=== PATIENT | male | born 1945 | race Caucasian/White ===

== ENCOUNTER 2016-08-28 | Outpatient (CLI) | END 2016-08-28 03:29 | disposition critical access hospital (66) | CPT/HCPCS: A0425; A0429 ==

== ENCOUNTER 2016-08-28 03:36 | Emergency (ER) | END 2016-08-28 07:21 | disposition home or self-care (01) ==

== ENCOUNTER 2016-10-02 09:37 | Outpatient (CLI) | payer MEDICARE, OTHER | END 2016-10-02 09:38 | disposition home or self-care (01) | DX: I10 Essential (primary) hypertension (principal) ==

== ENCOUNTER 2016-12-07 08:47 | Emergency (ER) | payer MEDICARE, OTHER ==
[2016-12-07] MEDS ORDERED: BENZONATATE 100 MG CAPSULE PO STA (08:54)
[2016-12-07] MEDS ORDERED: guaiFENesin/DEXTROMETHORPHAN 10 ML UDC PO PRN (08:54)
[2016-12-07] MEDS ORDERED: BENZONATATE 100 MG CAPSULE PO ONE (09:08)
[2016-12-07] MEDS ORDERED: guaiFENesin/DEXTROMETHORPHAN 10 ML UDC ONE (09:09)
== END 2016-12-07 09:50 | disposition home or self-care (01) ==
DX: J18.9 Pneumonia, unspecified organism (principal); I10 Essential (primary) hypertension; N40.0 Benign prostatic hyperplasia without lower urinary tract symptoms; M19.90 Unspecified osteoarthritis, unspecified site
CPT/HCPCS: 71020; 99282; 99283; A9270

== ENCOUNTER 2017-10-15 07:54 | Outpatient (CLI) | payer MEDICARE, OTHER ==
[2017-10-15 12:58] LABS: BASOPHILS % (AUTO) 0.3 %; EOSINOPHILS # (AUTO) 0.3 10^3/uL (0.0-0.7); EOSINOPHILS % (AUTO) 4.7 %; LYMPHOCYTES # (AUTO) 1.4 10^3/uL (1.5-3.5); LYMPHOCYTES % (AUTO) 19.2 %; MEAN CORPUSCULAR HEMOGLOBIN 32.6 pg (27.0-31.0); MEAN CORPUSCULAR HGB CONC 34.3 g/dL (32.0-36.0); MEAN PLATELET VOLUME 10.3 fL (7.4-11.4); MONOCYTES # (AUTO) 0.7 10^3/uL (0.0-1.0); MONOCYTES % (AUTO) 10.2 %; NEUTROPHILS # (AUTO) 4.8 10^3/uL (1.5-6.6); NEUTROPHILS % (AUTO) 65.6 %; PLT - PLATELET COUNT 152 10^3/uL (130-450); RED BLOOD COUNT 4.61 10^6/uL (4.70-6.10); WHITE BLOOD COUNT 7.3 x10^3/uL (4.8-10.8)
[2017-10-15 13:14] LABS: PSA FREE 0.58 ng/mL (0.16-2.81)
[2017-10-15 13:15] LABS: PSA TOTAL 2.91 ng/mL (0.000-2.000)
[2017-10-15 13:16] LABS: HB2 TOTAL 16.4 g/dL; HEMOGLOBIN A1C 0.69 g/dL
[2017-10-15 13:26] LABS: ALBUMIN 4.3 g/dL (3.2-5.5); ALBUMIN/GLOBULIN RATIO 1.6 (1.0-2.2); ALKALINE PHOSPHATASE 42 IU/L (42-121); ALT ALANINE AMINOTRANSFERASE 39 IU/L (10-60); AST ASPARTATE AMINOTRANSFERASE 33 IU/L (10-42); BILIRUBIN,TOTAL 1.1 mg/dL (0.2-1.0); BUN - BLOOD UREA NITROGEN 19 mg/dL (6-20); CALCIUM 9.3 mg/dL (8.5-10.3); CARBON DIOXIDE - CO2 23 mmol/L (21-32); CHLORIDE 105 mmol/L (101-111); CHOL/HDL RATIO 3.9 (<5.0); CHOLESTEROL 201 mg/dL; CREATININE 1.2 mg/dL (0.6-1.2); GFR - MDRD 60 (>89); GLUCOSE 147 mg/dL (70-100); HDL CHOLESTEROL 51 mg/dL; LDL CHOLESTEROL,CALCULATED 109 mg/dL; LDL/HDL RATIO 2.1 (<3.6); SODIUM 137 mmol/L (135-145); VLDL CHOLESTEROL 41 mg/dL
== END 2017-10-15 07:55 | disposition home or self-care (01) ==
LOC: LAB.WCP 07:54
PROVIDERS: ATTEND Family Medicine
DX: E66.9 Obesity, unspecified (principal); R73.9 Hyperglycemia, unspecified; E78.5 Hyperlipidemia, unspecified; I10 Essential (primary) hypertension; R97.20 Elevated prostate specific antigen [PSA]
CPT/HCPCS: 36415; 80053; 80061; 83036; 83721; 84154; 84443; 85025

== ENCOUNTER 2021-07-05 12:52 | Outpatient (CLI) | payer MEDICARE | END 2021-07-05 12:53 | disposition home or self-care (01) | LOC: COV 12:52 | PROVIDERS: ATTEND Family Medicine | DX: Z20.822 Contact with and (suspected) exposure to COVID-19 (principal) ==

== ENCOUNTER 2021-08-14 13:01 | Outpatient (CLI) | payer MEDICARE ==
--- NOTE | 2021-08-14 15:57 | Ultrasound Report ---
PROCEDURE: Pelvic Limited or F/U INDICATIONS: BULGE IN RIGHT LOWER QUADRANT TECHNIQUE: Real-time transabdominal scanning was performed of the pelvic organs, with image documentation. COMPARISON: None. FINDINGS: Limited ultrasound of the right groin in the area of pain was performed. Normal tissue is identified with no hernia identified. IMPRESSION: No hernia identified by ultrasound. Reviewed by: Bakari David on 08/14/2021 2:56 PM [facility] Approved by: Bakari David on 08/14/2021 2:56 PM [facility] Station ID: [id number]
== END 2021-08-14 13:02 | disposition home or self-care (01) ==
LOC: DI 13:01
PROVIDERS: ATTEND Family Medicine
DX: R19.03 Right lower quadrant abdominal swelling, mass and lump (principal); Z87.19 Personal history of other diseases of the digestive system

== ENCOUNTER 2021-08-31 12:50 | Outpatient (CLI) | payer MEDICARE ==
--- NOTE | 2021-08-31 16:07 | MRI Report ---
PROCEDURE: Lumbar Spine W/O INDICATIONS: LEFT LUMBAR RADICULOPATHY TECHNIQUE: Noncontrast sagittal T1 spin echo and T2 fast echo, sagittal STIR, axial T1 and T2 fast spin echo thr ough the lumbar spine. In cases with scoliosis, additional coronal T2 fast spin echo may be performe d. COMPARISON: None. FINDINGS: Image quality: Excellent. Alignment and Curvature: No plain films are available for comparison. Thus, for numbering purposes, 5 lumbar type vertebral bodies will be presumed for the current report. This should be confirmed with plain film correlation prior to any lumbar spinal intervention. There is normal bony alignment. Bone Marrow: Marrow is of normal overall signal. No acute vertebral body compression fractures. Mi ld reactive signal throughout the endplates of the lumbar and lower thoracic spine. Spinal Cord: Conus medullaris terminates at the lower L1 level. Visualized cord demonstrates normal signal and size. Paraspinous Soft Tissues: No paravertebral masses. Parapelvic renal cysts are present. T12-L1: Normal in appearance. L1-L2: Mild disc height loss and desiccation. Mild facet and ligament flavum hypertrophy. Mild can al stenosis. Mild bilateral foraminal stenosis. L2-L3: Mild disc desiccation. Mild facet and ligament flavum hypertrophy. Mild canal stenosis. Mil d bilateral foraminal stenosis. L3-L4: Mild disc desiccation and diffuse disc bulge. Mild facet and ligament flavum hypertrophy. Mi ld canal stenosis. Mild bilateral foraminal stenosis. L4-L5: Moderate disc desiccation. Moderate facet and ligament flavum hypertrophy. Mild epidural lip omatosis. Mild canal stenosis. Moderate bilateral foraminal stenosis. L5-S1: Mild disc height loss and desiccation. Mild bilateral facet hypertrophy. Mild canal stenosis . Mild right and moderate left foraminal stenosis. IMPRESSION: 1. Multilevel degenerative disc and facet disease, in addition to epidural lipomatosis and ligamentum flavum hypertrophy. 2. Mild multilevel canal stenoses. . Multilevel foraminal stenoses, worst at L4-L5 and L5-S1, where there are moderate foraminal stenose s. Reviewed by: Domo Ramirez MD on 08/31/2021 4:06 PM PST Approved by: Domo Ramirez MD on 08/31/2021 4:06 PM PST Station ID: [id number]
== END 2021-08-31 12:51 | disposition home or self-care (01) ==
LOC: DI 12:50
PROVIDERS: ATTEND Family Medicine
DX: E88.2 Lipomatosis, not elsewhere classified (principal); M47.26 Other spondylosis with radiculopathy, lumbar region; M47.27 Other spondylosis with radiculopathy, lumbosacral region; M51.16 Intervertebral disc disorders with radiculopathy, lumbar region; M48.061 Spinal stenosis, lumbar region without neurogenic claudication; M51.37 Other intervertebral disc degeneration, lumbosacral region; M48.07 Spinal stenosis, lumbosacral region

== ENCOUNTER 2022-01-24 12:47 | Outpatient (CLI) | payer MEDICARE ==
--- NOTE | 2022-01-24 16:00 | CT Report ---
PROCEDURE: CT brain without contrast INDICATIONS: WEAKNESS OF BOTH LEGS, LOSS OF SENSATION IN HANDS TECHNIQUE: Noncontrast 4.5 mm thick angled axial sections acquired from the foramen magnum to the vertex. For r adiation dose reduction, the following was used: automated exposure control, adjustment of mA and/or kV according to patient size. COMPARISON: None. FINDINGS: Image quality: Excellent. CSF spaces: Basal cisterns are patent. No extra-axial fluid collections. Ventricles are normal in size and shape. Brain: No midline shift. No intracranial masses or hemorrhage. Shafer-white matter interface is norm al. Moderate atrophy and multifocal white matter chronic ischemic change noted. Atherosclerotic vasc ular calcification noted in the cavernous segments of both internal carotid arteries as well as the i ntradural vertebral arteries. Skull and face: Calvarium and visualized facial bones are intact, without suspicious lesions. Bilat eral intraocular lens replacements noted. Sinuses: Visualized sinuses and mastoids are clear. Mild ethmoid and bilateral maxillary sinus muco antoinette thickening IMPRESSION: 1. Atrophy and chronic ischemic change without acute hemorrhage or mass effect 2. Mild maxillary and ethmoid mucosal sinus disease Reviewed by: Maximus Buckner MD on 01/24/2022 2:58 PM [facility] Approved by: Maximus Buckner MD on 01/24/2022 2:58 PM [facility] Station ID: [id number]
== END 2022-01-24 12:48 | disposition home or self-care (01) ==
LOC: DI 12:47
PROVIDERS: ATTEND Family Medicine
DX: G31.9 Degenerative disease of nervous system, unspecified (principal); I67.82 Cerebral ischemia; J32.0 Chronic maxillary sinusitis; J32.2 Chronic ethmoidal sinusitis

== ENCOUNTER 2023-02-20 09:33 | Emergency (ER) | payer MEDICARE ==
[2023-02-20 11:14] LABS: BILIRUBIN,URINE NEGATIVE (NEGATIVE); GLUCOSE, URINE (UA) NEGATIVE (NEGATIVE); KETONES,URINE (UA) 15 mg/dL (NEGATIVE); LEUKOCYTE ESTERASE, URINE NEGATIVE (NEGATIVE); NITRITE,URINE NEGATIVE (NEGATIVE); OCCULT BLOOD,URINE NEGATIVE (NEGATIVE); PH,URINE 5.5 PH (5.0-7.5); PROTEIN,URINE NEGATIVE (NEGATIVE); UROBILINOGEN,URINE 0.2 (NORMAL) E.U./dL (NORMAL)
[2023-02-20 11:20] LABS: CLARITY,URINE CLEAR (CLEAR)
[2023-02-20] MEDS ORDERED: SODIUM CHLORIDE 0.9% 1,000 ML IV STA (11:32)
--- NOTE | 2023-02-20 11:33 | ED Physician Documentation ---
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 He has had back pain preceding the placement of the shunt and this has not been fully addressed. His back pain became significantly worse about 1 month ago when he sat in the dentist chair. Since that time he has been uncomfortable having a hard time getting out of bed secondary to pain in his back. He denies radiation into his back he does have some radiation around to his front sometimes and a sharp stabbing pain that is present when he is laying flat. Review of Systems Constitutional: denies: Fever Eyes: denies: Decreased vision Ears: denies: Ear pain Nose: denies: Congestion Throat: denies: Sore throat Cardiac: denies: Chest pain / pressure, Palpitations Respiratory: denies: Dyspnea, Cough GI: denies: Abdominal Pain, Nausea, Vomiting, Constipation, Diarrhea : denies: Dysuria, Frequency Musculoskeletal: reports: Back pain. denies: Neck pain, Extremity pain Neurologic: reports: Headache (similar to always since the procedure.). denies: Generalized weakness, Focal weakness, Numbness PD PAST MEDICAL HISTORY - Past Medical History Cardiovascular: Hypertension Respiratory: None Endocrine/Autoimmune: None GI: None : Benign prostate hypertrophy HEENT: None Musculoskeletal: Osteoarthritis Derm: None - Past Surgical History Past Surgical History: Yes General: Other HEENT: Tonsil/Adenoidectomy - Present Medications Home Medications: Ambulatory Orders Medication Instructions Recorded Confirmed guaiFENesin/DEXTROMETHORPHAN 10 ml PO Q6H PRN #120 ml 12/07/16 10/27/22 [Robitussin Dm] Albuterol Sulf [Ventolin Hfa 1 - 2 puffs INH Q4HR PRN #1 each 10/27/22 Inhaler] Benzonatate [Tessalon] 200 mg PO TID PRN #20 cap 10/27/22 Gabapentin [Neurontin] 1 cap PO TID 10/27/22 10/27/22 Hydroxychloroquine [Plaquenil] 200 mg PO DAILY 10/27/22 10/27/22 Tamsulosin [Flomax] 1 cap PO DAILY 10/27/22 10/27/22 Meloxicam [Mobic] 7.5 mg PO BID PRN #20 tablet 02/20/23 - Allergies Allergies/Adverse Reactions: Allergies Allergy/AdvReac Type Severity Reaction Status Date / Time morphine AdvReac Intermediate Nausea Verified 02/20/23 09:41 hydrocodone bitartrate * AdvReac Mild Nausea Verified 02/20/23 09:41 [From Vicodin] oxycodone HCl * AdvReac Mild Nausea Verified 02/20/23 09:41 [From Percocet] tramadol HCl * [From Ultram] AdvReac Mild Nausea Verified 02/20/23 09:41 - Social History Does the pt smoke?: No Smoking Status: Never smoker Does the pt drink ETOH?: Yes Does the pt have substance abuse?: No - Immunizations Immunizations are current?: Yes - POLST Patient has POLST: No PD ED PE NORMAL - Vitals Vital signs reviewed: Yes (hypertensive with wide pulse pressure. ) - General General: Alert and oriented X 3, No acute distress, Well developed/nourished - HEENT HEENT: Atraumatic, PERRL, EOMI - Neck Neck: Supple, no meningeal sign, No bony TTP - Cardiac Cardiac: RRR, No murmur - Respiratory Respiratory: No respiratory distress, Clear bilaterally - Back Back: No CVA TTP, No spinal TTP, Other (mild paralumbar pain to palpation on the right lower. ) - Derm Derm: Normal color, Warm and dry, No rash - Extremities Extremities: No deformity, No edema - Neuro Neuro: Alert and oriented X 3, sweatband drummer 2-12 intact, No motor deficit, No sensory deficit, Normal speech Eye Opening: Spontaneous Motor: Obeys Commands Verbal: Oriented GCS Score: 15 - Psych Psych: Normal mood, Normal affect Results - Vitals Vitals: Vital Signs - 24 hr 02/20/23 02/20/23 02/20/23 09:41 11:42 13:00 Temperature 36.5 C 36.5 C Heart Rate 62 55 L 60 Respiratory 18 18 18 Rate Blood Pressure 157/52 H 145/67 H 130/60 O2 Saturation 95 100 100 Oxygen O2 Source Room air - Labs Labs: Laboratory Tests 02/20/23 02/20/23 02/20/23 10:55 11:55 11:55 WBC 6.1 RBC 4.37 L Hgb 14.3 Hct 43.4 MCV 99.3 H MCH 32.7 H MCHC 32.9 RDW 13.3 Plt Count 147 MPV 11.9 H Neut # (Auto) 4.2 Lymph # (Auto) 1.0 L [place] # (Auto) 0.7 Eos # (Auto) 0.2 Baso # (Auto) 0.0 Absolute Nucleated RBC 0.00 Nucleated RBC % 0.0 Sodium 139 Potassium 5.0 Chloride 107 Carbon Dioxide 27 Anion Gap 5.0 L BUN 22 H Creatinine 0.9 Estimated GFR (MDRD) 82 L Glucose 107 H Calcium 9.2 Total Bilirubin 1.1 H AST 22 ALT 20 Alkaline Phosphatase 43 Total Protein 6.9 Albumin 3.9 Globulin 3.0 Albumin/Globulin Ratio 1.3 Lipase 36 Urine Color YELLOW Urine Clarity CLEAR Urine pH 5.5 Ur Specific [place] 1.020 Urine Protein NEGATIVE Urine Glucose (UA) NEGATIVE Urine Ketones 15 H Urine Occult Blood NEGATIVE Urine Nitrite NEGATIVE Urine Bilirubin NEGATIVE Urine Urobilinogen 0.2 (NORMAL) Ur Leukocyte Esterase NEGATIVE Ur Microscopic Review NOT INDICATED Urine Culture Comments NOT INDICATED Procedures - IVC sono (time) 1125 Bedside IVC sono: IVC measures (cm) (1.3), IVC collapsed c insp (cm) (complete), Dehydration (mild less than one liter.) PD Medical Decision Making - ED course Complexity details: reviewed old records, reviewed results, re-evaluated patient, considered differential, d/w patient Reviewed Lab Results: We reviewed a complete blood count which showed a normal white blood cell count normal hemoglobin hematocrit and platelets with an MCV elevated at 99.3 chemistries were remarkable for a BUN elevated at 22 otherwise normal electrolytes normal creatinine of 0.9 liver functions normal. Urinalysis also unremarkable specific gravity 1.020. I interpretation of these relatively benign laboratory results are that the elevated BUN at 22 is additional support for the diagnosis of dehydration made on interrogation of the inferior vena cava with POCUS. These laboratory results also denote absence of an overwhelming process. ED course: 77-year-old Rick Larose presented to the emergency department today with back pain and elevated blood pressure. He was concerned about his blood pressure because of the recent placement of the ventricular peritoneal's shunt. I found it more likely that his blood pressure was elevated secondary to his significant back pain which appears has not been completely addressed in light of everything else being addressed. He had good improvement with use of dexamethasone and Toradol for treatment of his back pain in the emergency department. He was also found to be dehydrated on interrogation of the inferior vena cava with POCUS. The dehydration likely is related to the patient's decreased mobility and decreased ability to seek water. Initial response of blood pressure from volume depletion is hypertension. Initial response to pain is elevation in blood pressure. We treated both pain and dehydration and found the patient's blood pressure improved to 130/60 as well as his pain symptoms. I have E scribed some meloxicam for the patient to use as he does not appear to tolerate narcotics. I have asked the patient to follow-up with his primary about further treatment of his back pain as indicated. Departure - Departure Disposition: Home, Self Care Clinical Impression: Dehydration Hypertension Qualifiers: Hypertension type: unspecified Qualified Code(s): I10 - Essential (primary) hyp ertension Back pain Qualifiers: Back pain location: low back pain Chronicity: chronic Back pain laterality: right Sciatica presence: without sciatica Qualified Code(s): M54.50 - Low back pain, unspecified Condition: Stable Instructions: ED Dehydration, ED HTN Established, ED Neck Back Pain General Follow-Up: Mu Delgado DO [Provider Admit Priv/Credential] - Prescriptions: Meloxicam [Mobic] 7.5 mg PO BID PRN #20 tablet PRN Reason: Pain Comments: Rick, today it looks like your blood pressure issue is likely related to your back pain and dehydration. We have corrected your dehydration and we are expecting this to help in general with your back pain. I have E scribed some meloxicam to the [facility] in [place]. This is an anti-inflammatory medicine for treatment of your back pain. Use this to substitute for the ibuprofen. Follow-up with your doctor as planned tomorrow for a recheck of your blood pressure and a follow-up on your back pain. Discharge Date/Time: 02/20/23 13:09
[2023-02-20 12:10] LABS: BASOPHILS % (AUTO) 0.7 %; EOSINOPHILS # (AUTO) 0.2 10^3/uL (0.0-0.7); EOSINOPHILS % (AUTO) 3.1 %; HCT - HEMATOCRIT 43.4 % (42.0-52.0); HGB - HEMOGLOBIN 14.3 g/dL (14.0-18.0); LYMPHOCYTES % (AUTO) 15.7 %; MEAN CORPUSCULAR HEMOGLOBIN 32.7 pg (27.0-31.0); MEAN CORPUSCULAR HGB CONC 32.9 g/dL (32.0-36.0); MEAN CORPUSCULAR VOLUME 99.3 fL (80.0-94.0); MEAN PLATELET VOLUME 11.9 fL (7.4-11.4); MONOCYTES # (AUTO) 0.7 10^3/uL (0.0-1.0); MONOCYTES % (AUTO) 11.3 %; NEUTROPHILS # (AUTO) 4.2 10^3/uL (1.5-6.6); NEUTROPHILS % (AUTO) 68.9 %; PLT - PLATELET COUNT 147 10^3/uL (130-450); RED BLOOD COUNT 4.37 10^6/uL (4.70-6.10); RED CELL DISTRIBUTION WIDTH 13.3 % (12.0-15.0); WHITE BLOOD COUNT 6.1 x10^3/uL (4.8-10.8)
[2023-02-20 12:23] LABS: ALBUMIN 3.9 g/dL (3.2-5.5); ALBUMIN/GLOBULIN RATIO 1.3 (1.0-2.2); BILIRUBIN,TOTAL 1.1 mg/dL (0.2-1.0); CALCIUM 9.2 mg/dL (8.5-10.3); CREATININE 0.9 mg/dL (0.6-1.2); TOTAL PROTEIN 6.9 g/dL (6.7-8.2)
[2023-02-20] MEDS ORDERED: DEXAMETHASONE 10 MG/ML VIAL PO STA (12:26)
[2023-02-20] MEDS ORDERED: CHERRY SYRUP 10 ML UDC PO ONE (12:26)
[2023-02-20] MEDS ORDERED: KETOROLAC 30 MG/ML VIAL IVP STA (12:27)
[2023-02-20 13:13] VITALS: BP 130/60
== END 2023-02-20 13:09 | disposition home or self-care (01) ==
LOC: ED 09:33
DX: M54.50 Low back pain, unspecified (principal); E86.0 Dehydration; I10 Essential (primary) hypertension; Z79.899 Other long term (current) drug therapy
CPT/HCPCS: 36415; 80053; 81003; 83690; 85025; 96361; 96374; 99283; 99284; A9270; 81001; 87086

== ENCOUNTER 2023-03-07 16:42 | Outpatient (CLI) | payer MEDICARE | END 2023-03-07 23:59 | disposition critical access hospital (66) | LOC: EMS 16:42 | DX: M54.50 Low back pain, unspecified (principal) | CPT/HCPCS: A0425; A0429 ==

== ENCOUNTER 2023-03-07 16:50 | Emergency (ER) | payer MEDICARE ==
[2023-03-07] MEDS ORDERED: SODIUM CHLORIDE 0.9% 1,000 ML IV STA (17:09)
--- NOTE | 2023-03-07 17:11 | ED Physician Documentation ---
PD HPI BACK PAIN - Stated complaint Stated Complaint: BACK PX - Chief complaint Chief Complaint: Back Pain - History obtained from History obtained from: Patient, Family - History of Present Illness Timing - duration: Years Timing - details: Still present Pain level max: 9 Pain level now: 9 Location: Lower, Left Quality: Pain, Spasm, Similar to prior episodes Associated symptoms: No: Fever, Weakness, Numbness, Incontinent of urine, Unable to urinate, Hematuria, Incontinent of stool Contributing factors: No: Lifting, Twisting, Trauma, Anticoagulated, Cancer, IVDA, Out of meds - Additional information Additional information: 78-year-old male complains of ongoing low back pain and difficulty walking secondary to pain. He states that he has had falls but no headache. He did reportedly have a OPERATIONS ADMINISTRATIVE ASSISTANT shunt placed at the end of November with Dr. Cross at [facility] in [place]. No numbness or tingling. No loss of bowel or bladder control. No IV drug use. He states he has not struck his head. Patient also states that he occasionally has shooting lower abdominal pain in the groin. Review of Systems Constitutional: denies: Fever, Chills Eyes: denies: Decreased vision Ears: denies: Ear pain Nose: denies: Rhinorrhea / runny nose, Congestion GI: denies: Nausea, Vomiting, Diarrhea Skin: denies: Rash Musculoskeletal: denies: Neck pain Neurologic: denies: Focal weakness, Numbness, Headache PD PAST MEDICAL HISTORY - Past Medical History Cardiovascular: Hypertension Respiratory: None Endocrine/Autoimmune: None GI: None : Benign prostate hypertrophy HEENT: None Musculoskeletal: Osteoarthritis Derm: None - Past Surgical History Past Surgical History: Yes General: Other HEENT: Tonsil/Adenoidectomy - Present Medications Home Medications: Ambulatory Orders Medication Instructions Recorded Confirmed Albuterol Sulf [Ventolin Hfa 1 - 2 puffs INH Q4HR PRN #1 each 10/27/22 Inhaler] Gabapentin [Neurontin] 1 cap PO TID 10/27/22 10/27/22 Hydroxychloroquine [Plaquenil] 200 mg PO DAILY 10/27/22 10/27/22 Tamsulosin [Flomax] 1 cap PO DAILY 10/27/22 10/27/22 Meloxicam [Mobic] 7.5 mg PO BID PRN #20 tablet 02/20/23 Cyclobenzaprine [Flexeril] 10 mg PO TID PRN #20 tablet 03/06/23 - Allergies Allergies/Adverse Reactions: Allergies Allergy/AdvReac Type Severity Reaction Status Date / Time morphine AdvReac Intermediate Nausea Verified 03/06/23 10:23 hydrocodone bitartrate * AdvReac Mild Nausea Verified 03/06/23 10:23 [From Vicodin] oxycodone HCl * AdvReac Mild Nausea Verified 03/06/23 10:23 [From Percocet] - Social History Does the pt smoke?: No Smoking Status: Never smoker Does the pt drink ETOH?: Yes Does the pt have substance abuse?: No - Immunizations Immunizations are current?: Yes - POLST Patient has POLST: No PD ED PE NORMAL - Vitals Vital signs reviewed: Yes - General General: Alert and oriented X 3, No acute distress - HEENT HEENT: Atraumatic, PERRL, EOMI, Ears normal, Moist mucous membranes, Pharynx benign - Neck Neck: Supple, no meningeal sign, No bony TTP - Cardiac Cardiac: RRR, Strong equal pulses - Respiratory Respiratory: No respiratory distress, Clear bilaterally - Abdomen Abdomen: Soft, Non tender, Non distended, Other (Easily reducible umbilical hernia) - Back Back: Other (No midline tenderness to palpation or percussion. No step-off or deformity. Mild paraspinal spasm left low lumbar.) - Derm Derm: Warm and dry - Extremities Extremities: No edema, No calf tenderness / cord, Other (Normal bilateral lower extremity patellar and ankle jerk reflexes. Normal great toe extension bilaterally. no saddle anesthesia) - Neuro Neuro: Alert and oriented X 3, No motor deficit, No sensory deficit - Psych Psych: Normal mood, Normal affect Results - Vitals Vitals: Vital Signs - 24 hr 03/07/23 03/07/23 03/07/23 17:02 19:43 19:59 Temperature 36.8 C Heart Rate 65 58 L Respiratory 18 18 17 Rate Blood Pressure 161/88 H 163/72 H O2 Saturation 96 97 03/07/23 03/07/23 03/07/23 20:32 21:05 21:45 Temperature Heart Rate Respiratory 18 22 19 Rate Blood Pressure O2 Saturation Oxygen O2 Source Room air - Labs Labs: Laboratory Tests 03/07/23 03/07/23 17:21 17:21 WBC 7.4 RBC 4.51 L Hgb 14.8 Hct 43.9 MCV 97.3 H MCH 32.8 H MCHC 33.7 RDW 12.9 Plt Count 165 MPV 12.4 H Neut # (Auto) 6.6 Lymph # (Auto) 0.4 L [place] # (Auto) 0.2 Eos # (Auto) 0.0 Baso # (Auto) 0.0 Absolute Nucleated RBC 0.00 Nucleated RBC % 0.0 Sodium 138 Potassium 4.7 Chloride 108 Carbon Dioxide 25 Anion Gap 5.0 L BUN 23 H Creatinine 1.0 Estimated GFR (MDRD) 72 L Glucose 132 H Calcium 10.0 Phosphorus 2.5 Magnesium 2.3 Total Bilirubin 0.6 AST 19 ALT 21 Alkaline Phosphatase 48 Total Protein 7.4 Albumin 4.4 Globulin 3.0 Albumin/Globulin Ratio 1.5 - Rads (name of study) CT abdomen pelvis Relevant Findings:: Final report received, See rad report Head CT Relevant Findings:: EMP independent interpretation of test PD Medical Decision Making - ED course Complexity details: reviewed results, re-evaluated patient, considered differential, d/w patient, d/w family, d/w outside solar sales consultant ED course: 78-year-old male presents to the emergency department with chronic ongoing low back pain. His pain did improve with IV Dilaudid and he is able to stand and walk, though has difficulty getting out of bed and does require assistance. Labs do not show any significant abnormalities other than dehydration. Given IV fluids. Upon further history his states that he has had difficulty finishing sentences and seems like he is shuffling more over the past 4 weeks. She states that this is significantly worsened over the past week. Given the recent OPERATIONS ADMINISTRATIVE ASSISTANT shunt, head CT was performed. There appeared to be 2 large fluid tiera ections possible chronic subdural versus hygroma? The patient did receive an abdominal and pelvis CT earlier today that did have IV contrast. The abdomen pelvis CT did not show any significant abnormalities The patient will be signed out to the oncoming emergency department physician awaiting formal CT read and then consultation with the patient's neurosurgeon in [place], Dr. Nino. Patient is currently GCS 15. He does need assistance with ambulation. Departure - Departure Clinical Impression: Subdural hygroma Low back pain Qualifiers: Chronicity: acute Back pain laterality: left Sciatica presence: without sc iatica Qualified Code(s): M54.50 - Low back pain, unspecified Condition: Stable
[2023-03-07] MEDS ORDERED: HYDROmorphone 1 MG/ML CARPUJECT IVP STA ×2 (17:12→19:59)
[2023-03-07 17:30] LABS: BASOPHILS % (AUTO) 0.3 %; EOSINOPHILS % (AUTO) 0.1 %; HCT - HEMATOCRIT 43.9 % (42.0-52.0); HGB - HEMOGLOBIN 14.8 g/dL (14.0-18.0); LYMPHOCYTES # (AUTO) 0.4 10^3/uL (1.5-3.5); LYMPHOCYTES % (AUTO) 5.9 %; MEAN CORPUSCULAR HEMOGLOBIN 32.8 pg (27.0-31.0); MEAN CORPUSCULAR HGB CONC 33.7 g/dL (32.0-36.0); MEAN CORPUSCULAR VOLUME 97.3 fL (80.0-94.0); MEAN PLATELET VOLUME 12.4 fL (7.4-11.4); MONOCYTES # (AUTO) 0.2 10^3/uL (0.0-1.0); NEUTROPHILS # (AUTO) 6.6 10^3/uL (1.5-6.6); NEUTROPHILS % (AUTO) 90.3 %; PLT - PLATELET COUNT 165 10^3/uL (130-450); RED BLOOD COUNT 4.51 10^6/uL (4.70-6.10); RED CELL DISTRIBUTION WIDTH 12.9 % (12.0-15.0); WHITE BLOOD COUNT 7.4 x10^3/uL (4.8-10.8)
[2023-03-07 17:38] LABS: ALBUMIN 4.4 g/dL (3.2-5.5); ALBUMIN/GLOBULIN RATIO 1.5 (1.0-2.2); BILIRUBIN,TOTAL 0.6 mg/dL (0.2-1.0); MAGNESIUM 2.3 mg/dL (1.7-2.8); PHOSPHORUS 2.5 mg/dL (2.5-4.6); POTASSIUM 4.7 mmol/L (3.5-5.0); TOTAL PROTEIN 7.4 g/dL (6.7-8.2)
[2023-03-07] MEDS ORDERED: iohexoL-300 100 ML VIAL ONE (17:41)
[2023-03-07] MEDS ORDERED: iohexoL-300 100 ML VIAL IVP ONE (19:24)
--- NOTE | 2023-03-07 19:35 | CT Report ---
PROCEDURE: ABDOMEN/PELVIS W INDICATIONS: abd/back pain CONTRAST: Omni 300 100ml TECHNIQUE: After the administration of IV contrast, 5 mm thick sections acquired from the diaphragms to the symp hysis. 5 mm thick coronal and sagittal reformats were acquired. For radiation dose reduction, the f ollowing was used: automated exposure control, adjustment of mA and/or kV according to patient size. COMPARISON: None. FINDINGS: Image quality: Excellent. Lung bases and heart: Right middle lobe, lingula and left lower lobe scars and atelectasis. Liver: No solid mass. Mild hepatic steatosis. Gallbladder and biliary tree: Normal gallbladder. No biliary dilation. Spleen: No splenomegaly. Pancreas: No pancreatic ductal dilation. Adrenals: No adrenal nodule. Kidneys and ureters: No hydronephrosis. No renal cystic lesion which requires follow up. No solid mas s. Bowel and peritoneum: No bowel distension. No pathologic free fluid. Colonic diverticulosis. No acute diverticulitis. Normal appendix. There is a large amount of stool in colon. There is a catheter in the peritoneal cavity. Lymph nodes: No central or retroperitoneal adenopathy. Vessels: No infrarenal aortic aneurysm. PELVIS Reproductive organs: Prostate is mildly enlarged. Bladder: No abnormal wall thickening, accounting for underdistension. Pelvic lymph nodes: No pelvic adenopathy by size criteria. Bones: No aggressive osseous abnormality. Other: Small fat-containing umbilical hernia. Small fat-containing left inguinal hernia. IMPRESSION: 1. Diverticulosis. No acute diverticulitis. 2. Normal appendix. 3. A large amount of stool in colon. 4. Mild hepatic steatosis. 5. Small fat-containing umbilical hernia and left inguinal hernia. 6. As a catheter within the peritoneal cavity, presumably for peritoneal dialysis. Recommend clinical correlation. Reviewed by: Angela Castro MD on 03/07/2023 7:34 PM PDT Approved by: Angela Castro MD on 03/07/2023 7:34 PM PDT Station ID: [id number]
[2023-03-07] MEDS ORDERED: DEXAMETHASONE 10 MG/ML VIAL IVP STA (20:17)
--- NOTE | 2023-03-07 22:24 | CT Report ---
PROCEDURE: HEAD WO INDICATIONS: falls, head injuries TECHNIQUE: Noncontrast 4.5 mm thick angled axial sections acquired from the foramen magnum to the vertex. For r adiation dose reduction, the following was used: automated exposure control, adjustment of mA and/or kV according to patient size. COMPARISON: None. FINDINGS: Image quality: Excellent. CSF spaces: Basal cisterns are patent. There are bilateral significant extra-axial fluid collections , subdural, comprised of chronic appearing fluid with dependent layering higher density components po steriorly on the right and with what appears to be subacute subdural hematomas laterally on the right and possibly anteriorly on the left to a slight degree. Ventricles are distorted in size and shape with mass effect from the subdural fluid collections greater on the right than the left, compressing the cerebrum centrally and slightly displacing the midline structures leftward at the midline falx. A dditionally, there appears to be a small acute subdural hematoma layering along the tentorium, bilate rally, and extending cephalad at the midline falx, only approximately 2 mm in maximal thickness. A ventriculostomy has been placed from right frontal calvarial approach extending into the anterior p ortion of the right lateral ventricle. Brain: Mild leftward midline shift. No intracranial masses or hemorrhage. Shafer-white matter interfa ce is generally normal. Skull and face: Calvarium and visualized facial bones are intact, without suspicious lesions. Sinuses: Visualized sinuses and mastoids are clear. IMPRESSION: There has been significant change from the comparison head CT 01/24/2022 with a ventriculoperitoneal s driscoll placed, from right frontal approach into the anterior right lateral ventricle, and with a combin ation of chronic, subacute, and a thin acute subdural hemorrhage as discussed above. This produces si gnificant mass effect compressing and distorting the lateral ventricles, to a greater degree on the r ight than the left. This results in a slight degree of leftward shift of the midline structures. No i schemic injury is associated by CT appearance. The findings were immediately called to and discussed in detail with the emergency room physician car ing for the patient. He explained that earlier in the day the patient received contrast enhancement f or a abdomen/pelvis CT and this likely explains the homogeneous dural enhancement present rather than thin layering subdural hematomas bilaterally exactly quit: Thin thickness along all of the dural mila faces. The remainder of the abnormalities above are considered secondary to chronic, subacute, and po ssibly slight recent acute subdural hemorrhages. Given the mass effect present neurosurgical consulta tion was discussed. Reviewed by: Danyel Sahni MD on 03/07/2023 10:22 PM PDT Approved by: Danyel Sahni MD on 03/07/2023 10:22 PM PDT Station ID: [id number]
--- NOTE | 2023-03-07 22:26 | ED Physician Documentation ---
ED Addendum - Addendum Addendum: Radiology did read the CT scan prior to signout. Bilateral subdural hemorrhages, subacute on chronic. There is significant shift as well. We will consult the patient's neurosurgeon in [place]. Patient was signed out to Dr. Chambers. Patient is GCS 15 with no neurological deficits. IMPRESSION: There has been significant change from the comparison head CT 01/24/2022 with a ventriculoperitoneal shunt placed, from right frontal approach into the anterior right lateral ventricle, and with a combination of chronic, subacute, and a thin acute subdural hemorrhage as discussed above. This produces significant mass effect compressing and distorting the lateral ventricles, to a greater degree on the right than the left. This results in a slight degree of leftward shift of the midline structures. No ischemic injury is associated by CT appearance. The findings were immediately called to and discussed in detail with the emergency room physician caring for the patient. He explained that earlier in the day the patient received contrast enhancement for a abdomen/pelvis CT and this likely explains the homogeneous dural enhancement present rather than thin layering subdural hematomas bilaterally exactly quit: Thin thickness along all of the dural surfaces. The remainder of the abnormalities above are considered secondary to chronic, subacute, and possibly slight recent acute subdural hemorrhages. Given the mass effect present neurosurgical consultation was discussed.
--- NOTE | 2023-03-07 23:00 | ED Physician Documentation ---
ED Addendum - Addendum Addendum: 03/07/23 22:[address] Mcdonough, the patient's neurosurgeon And reviewed the CT scan findings. The patient will be transferred to [facility]. Patient is accepted by Dr. Mcdonough. COBRA forms completed. This document was made in part using voice recognition software. While efforts are made to proofread this document, sound alike and grammatical errors may occur. Departure - Departure Disposition: 02 Transfer Acute Care Hosp Clinical Impression: Subdural hemorrhage Low back pain Qualifiers: Chronicity: acute Back pain laterality: left Sciatica presence: without sciatica Qualified Code(s): M54.50 - Low back pain, unspecified Condition: Stable
[2023-03-07 23:07] VITALS: BP 153/84
== END 2023-03-08 00:36 | disposition short-term general hospital (02) ==
LOC: EDUNIT# → ED 16:50
DX: G96.08 Other cranial cerebrospinal fluid leak (principal); I62.00 Nontraumatic subdural hemorrhage, unspecified; M54.50 Low back pain, unspecified; I10 Essential (primary) hypertension; Z79.899 Other long term (current) drug therapy
CPT/HCPCS: 36415; 70450; 74177; 80053; 83735; 84100; 85025; 96374; 96375; 96376; 99284; 99285; J1170; Q9967